=== PATIENT | male | born 1945 | race Caucasian/White ===

== ENCOUNTER 2019-07-09 16:10 | Inpatient (IN) | payer MEDICARE, BC ==
[~2019-07-09] VITALS: Ht 177.8 cm; Wt 87.3 kg
[~2019-07-09 16:10] MED LIST: LEVO750T46 PO; TAMS0.4C32 PO
[2019-07-09 16:50] VITALS: BP 150/62
[2019-07-09 17:29] LABS: BASOPHILS % (AUTO) 0.7 % (0.0-5.0); EOSINOPHILS % (AUTO) 3.5 % (0.0-8.0); HEMATOCRIT 24.5 % (42-54); LYMPHOCYTES % (AUTO) 21.3 % (21.0-51.0); MEAN CORPUSCULAR HGB CONC 30.2 g/dL (32.0-36.0); MEAN CORPUSCULAR VOLUME 82.8 fL (79-99); NEUTROPHILS % (AUTO) 63.1 % (40.0-77.0); PLATELET COUNT (AUTO) 258 K/uL (130-400); RED BLOOD CELL COUNT(AUTO) 2.96 MIL/uL (4.50-6.20); WHITE BLOOD COUNT (AUTO) 7.6 K/uL (4.8-10.8)
[2019-07-09 17:46] LABS: ALBUMIN 3.9 g/dL (3.5-5.0); BILIRUBIN,TOTAL 0.6 mg/dL (0.2-1.0); CREATININE 1.1 mg/dL (0.5-1.5); POTASSIUM 4.1 mmol/L (3.5-5.1); TOTAL PROTEIN, SERUM 7.3 g/dL (6.0-8.3)
[2019-07-09 17:51] LABS: CREATINE KINASE, TOTAL 185 U/L (21-232); MYOGLOBIN 80 ng/mL (10-92); TROPONIN I < 0.04 ng/mL (0.00-0.06)
--- NOTE | 2019-07-09 17:57 | NUR ---
SPOKE WITH DR. MCGOWAN MADE AWARE OF NEW CONSULTS, REVIEWED LABS AND PATIENTS HISTORY. NEW ORDER COLONOSCOPY TOMORROW
[2019-07-09] MEDS ORDERED: ASPI-556 PO (18:00)
[2019-07-09] MEDS ORDERED: ROSU20TA31 PO (18:00)
[2019-07-09] MEDS ORDERED: FINA5TAB41 PO (18:00)
[2019-07-09] MEDS ORDERED: LOSA25TA41 PO (18:00)
[2019-07-09] MEDS ORDERED: ISOS30TA6 PO (18:00)
[2019-07-09] MEDS ORDERED: DOCU-133 PO (18:00)
[2019-07-09] MEDS ORDERED: DONE10TA43 PO (18:00)
[2019-07-09] MEDS ORDERED: METO-408 PO (18:00)
[2019-07-09] MEDS ORDERED: TAMS-1 PO (18:00)
[2019-07-09] MEDS ORDERED: ACETAMINOPHEN 325 MG TAB PO PRN (19:30)
[2019-07-09] MEDS ORDERED: CLONIDINE HCL 0.1 MG TABLET PO PRN (19:30)
[2019-07-09] MEDS ORDERED: ZOLPIDEM TARTRATE 5 MG TAB PO PRN (19:30)
[2019-07-09] MEDS ORDERED: GUAIFENESIN-DM 200/20 MG 10 ML PO PRN (19:30)
[2019-07-09] MEDS ORDERED: ONDANSETRON HCL 4 MG/2 ML VIAL IVP PRN (19:30)
[2019-07-09] MEDS ORDERED: DIPHENHYDRAMINE HCL 25 MG CAPSULE PO PRN (19:30)
[2019-07-09] MEDS ORDERED: LACTULOSE 20 GM/30 ML UDCUP PO PRN (19:30)
[2019-07-09 19:41] VITALS: BP 136/65
[2019-07-09] MEDS ORDERED: COMPOUND IV MISC 1 EACH IVSOLN MISC PRN (19:45)
[2019-07-09] MEDS ORDERED: PEG 3350/NA SULF,BICARB,CL/KCL 4000 ML SOLN ONE (21:06)
[2019-07-09] MEDS ORDERED: SODIUM CHLORIDE 0.9% 250 ML IV ONE (21:10)
[2019-07-09] MEDS ORDERED: PEG 3350/NA SULF,BICARB,CL/KCL 4000 ML SOLN PO ONE (22:15)
[2019-07-09 23:26] VITALS: BP 148/67
[2019-07-10] VITALS (19 sets, daily range): BP systolic 118–159; BP diastolic 45–83
[2019-07-10 04:37] LABS: BASOPHILS % (AUTO) 0.7 % (0.0-5.0); EOSINOPHILS % (AUTO) 3.7 % (0.0-8.0); HEMATOCRIT 24.4 % (42-54); LYMPHOCYTES % (AUTO) 30.5 % (21.0-51.0); MEAN CORPUSCULAR HEMOGLOBIN 25.8 pg (27.0-33.0); MEAN CORPUSCULAR HGB CONC 31.6 g/dL (32.0-36.0); MEAN CORPUSCULAR VOLUME 81.9 fL (79-99); MONOCYTES % (AUTO) 11.2 % (3.0-13.0); NEUTROPHILS % (AUTO) 53.6 % (40.0-77.0); PLATELET COUNT (AUTO) 213 K/uL (130-400); RED BLOOD CELL COUNT(AUTO) 2.98 MIL/uL (4.50-6.20); RED CELL DISTRIBUTION WIDTH 12.7 % (11.0-15.5)
[2019-07-10 05:18] LABS: ALANINE AMINOTRANSFERASE 24 U/L (12-78); ALBUMIN 3.3 g/dL (3.5-5.0); ASPARTATE AMINOTRANSFERASE 19 U/L (10-37); BILIRUBIN,TOTAL 0.8 mg/dL (0.2-1.0); CARBON DIOXIDE 25 mmol/L (21-32); CHLORIDE 106 mmol/L (101-111); CREATINE KINASE, TOTAL 150 U/L (21-232); CREATININE 1.1 mg/dL (0.5-1.5); GLOMERULAR FILTR. RATE CALC 70 mL/min (>60); GLUCOSE,RANDOM 89 mg/dL (70-105); MYOGLOBIN 96 ng/mL (10-92); POTASSIUM 3.7 mmol/L (3.5-5.1); SODIUM SERUM 141 mmol/L (136-145); TOTAL PROTEIN, SERUM 6.4 g/dL (6.0-8.3); TROPONIN I < 0.04 ng/mL (0.00-0.06); UREA NITROGEN, BLOOD 17 mg/dL (7-18)
[2019-07-10] MEDS ORDERED: IRON SUCROSE COMPLEX 200 MG in SODIUM CHLORIDE 0.9% 50 ML IV SCH (09:00)
[2019-07-10] MEDS ORDERED: PANTOPRAZOLE 40 MG/VIAL IVP SCH (09:00)
[2019-07-10] MEDS ORDERED: PROPOFOL 10 MG/ML 20ML VIAL IV ONE (09:54)
[2019-07-10 11:15] LABS: HEMATOCRIT 25.3 % (42-54)
--- NOTE | 2019-07-10 11:28 | NUR ---
DCP CM met with pt discussed dc plans. Pt is independent prior to admission, lives at at home with spouse. Denies any equipments/services. Feels safe to go back home, still drives, spouse able to assist with transportation and needs as necessary. DC plan to home once stable. CM to cont to follow up. Addendum: 07/10/19 at 1130 by WILFRED MUNOZ LVN CM Amended: Links added.
[2019-07-10 11:35] LABS: CREATINE KINASE, TOTAL 152 U/L (21-232); MYOGLOBIN 121 ng/mL (10-92); TROPONIN I < 0.04 ng/mL (0.00-0.06)
== END 2019-07-10 15:55 | disposition home or self-care (01) | DRG 347 ==
LOC: EDH 16:10 → EDHIP 16:37 → 3CH 16:39
PROVIDERS: ADMIT Internal Medicine; ATTEND Internal Medicine
PROC: 30233N1 Transfusion of Nonautologous Red Blood Cells into Peripheral Vein, Percutaneous Approach (ICD-10-PCS; principal; 2019-07-10)
PROC: 06LY4CC Occlusion of Hemorrhoidal Plexus with Extraluminal Device, Percutaneous Endoscopic Approach (ICD-10-PCS; 2019-07-10)
DX: K64.1 Second degree hemorrhoids (principal); K57.31 Diverticulosis of large intestine without perforation or abscess with bleeding; D64.9 Anemia, unspecified; I10 Essential (primary) hypertension; I25.10 Atherosclerotic heart disease of native coronary artery without angina pectoris; N40.0 Benign prostatic hyperplasia without lower urinary tract symptoms; Z86.010 Personal history of colon polyps
CPT/HCPCS: 36415; 36430; 45398; 80053; 82550; 83874; 84484; 85014; 85018; 85025; 86850; 86900; 86901; 86922; A4606; C9113; G0378; J1756; J2704; J7030; J7050; P9016

== ENCOUNTER 2021-03-10 07:50 | Day surgery (SDC) | payer MEDICARE, BC ==
[2021-03-08 16:24] LABS: BASOPHILS % (AUTO) 0.7 % (0.0-5.0); EOSINOPHILS % (AUTO) 4.4 % (0.0-8.0); HEMATOCRIT 35.3 % (42-54); LYMPHOCYTES % (AUTO) 24.3 % (21.0-51.0); MEAN CORPUSCULAR HEMOGLOBIN 28.8 pg (27.0-33.0); MEAN CORPUSCULAR HGB CONC 32.6 g/dL (32.0-36.0); MEAN CORPUSCULAR VOLUME 88.5 fL (79-99); MONOCYTES % (AUTO) 9.7 % (3.0-13.0); NEUTROPHILS % (AUTO) 60.5 % (40.0-77.0); PLATELET COUNT (AUTO) 209 K/uL (130-400); RED BLOOD CELL COUNT(AUTO) 3.99 MIL/uL (4.50-6.20); RED CELL DISTRIBUTION WIDTH 13.4 % (11.0-15.5); WHITE BLOOD COUNT (AUTO) 7.5 K/uL (4.8-10.8)
[2021-03-08 16:34] LABS: APPEARANCE,URINE Clear (CLEAR); BILIRUBIN,URINE Negative (NEGATIVE); COLOR,URINE Yellow (YELLOW); GLUCOSE, URINE (UA) Negative (NEGATIVE); KETONES,URINE Negative (NEGATIVE); LEUKOCYTE ESTERASE ,URINE Negative (NEGATIVE); NITRATE,URINE Negative (NEGATIVE); OCCULT BLOOD,URINE Negative (NEGATIVE); PROTEIN,URINE Negative (NEGATIVE); UROBILINOGEN,URINE 0.2 mg/dL (0.2-1.0)
[2021-03-08 16:39] LABS: POTASSIUM 4.3 mmol/L (3.5-5.1)
[2021-03-09 11:57] VITALS: BP 139/62
[~2021-03-10] VITALS: Ht 180.3 cm; Wt 82.7 kg
[2021-03-10] VITALS (14 sets, daily range): BP systolic 105–141; BP diastolic 41–72
[2021-03-10] MEDS: CEFTRIAXONE 1G VIAL IVP SCH ×2 (05:00→11:15)
[~2021-03-10 07:50] MED LIST changes: +ASPI-556 PO; +CLOP75TA14 PO; +FINA5TAB41 PO; +GENTAMICIN 80 MG/NS 100 ML PB 100 ML IV SCH; +ISOS30TA92 PO; -LEVO750T46 PO; +LOSA25TA41 PO; +MEMA10TA55 PO; +METO-408 PO; +ROSU20TA31 PO; +TAMS-1 PO; -TAMS0.4C32 PO; +levaquin PO
[2021-03-10] MEDS ORDERED: LACTATED RINGERS 1000ML 1,000 ML IV ONE (07:58)
[2021-03-10] MEDS ORDERED: SUCCINYLCHOLINE 200MG/10ML SYR ONE (11:12)
[2021-03-10] MEDS ORDERED: LIDOCAINE PF 100MG/5ML (2%) SYRINGE 5ML ONE (11:12)
[2021-03-10] MEDS ORDERED: DEXAMETHASONE SOD PHOSPHATE 10MG/ML 1ML VIAL ONE (11:12)
[2021-03-10] MEDS ORDERED: MIDAZOLAM HCL 1 MG/ML 2ML VIAL ONE (11:13)
[2021-03-10] MEDS ORDERED: PROPOFOL 10 MG/ML 20ML VIAL IV ONE (11:13)
[2021-03-10] MEDS ORDERED: FENTANYL CITRATE PF 50 MCG/1 ML 2ML VIAL ONE (11:27)
== END 2021-03-10 13:20 | disposition home or self-care (01) ==
LOC: DAH 07:50
PROVIDERS: ATTEND Urology
DX: C61 Malignant neoplasm of prostate (principal); Z20.822 Contact with and (suspected) exposure to COVID-19; I25.10 Atherosclerotic heart disease of native coronary artery without angina pectoris; Z79.01 Long term (current) use of anticoagulants; Z98.890 Other specified postprocedural states; Z95.5 Presence of coronary angioplasty implant and graft; Z79.899 Other long term (current) drug therapy
CPT/HCPCS: 36415; 55700; 71045; 76872; 76942; 80048; 81003; 85025; 87088; 87635; 88305; 88341; 88342; 93005; A4215 ×2; A4221; A4222; A4223; A4600; A4649; A4663; A4930; A6260; C9803; J0330; J0696; J1100; J1580; J2001; J2250; J2704; J3010; J7120

== ENCOUNTER 2022-03-02 06:52 | Day surgery (SDC) | payer MEDICARE, BC ==
[2022-02-27 13:26] LABS: BASOPHILS % (AUTO) 0.5 % (0.0-5.0); EOSINOPHILS % (AUTO) 1.5 % (0.0-8.0); HEMATOCRIT 38.3 % (42-54); LYMPHOCYTES % (AUTO) 26.2 % (21.0-51.0); MEAN CORPUSCULAR HEMOGLOBIN 28.9 pg (27.0-33.0); MEAN CORPUSCULAR HGB CONC 33.2 g/dL (32.0-36.0); MONOCYTES % (AUTO) 9.7 % (3.0-13.0); NEUTROPHILS % (AUTO) 61.8 % (40.0-77.0); PLATELET COUNT (AUTO) 225 K/uL (130-400); RED CELL DISTRIBUTION WIDTH 12.9 % (11.0-15.5); WHITE BLOOD COUNT (AUTO) 7.3 K/uL (4.8-10.8)
[2022-02-27 13:34] LABS: CREATININE 1.1 mg/dL (0.5-1.5); POTASSIUM 4.5 mmol/L (3.5-5.1)
[2022-02-27 14:15] LABS: APPEARANCE,URINE CLEAR (CLEAR); BILIRUBIN,URINE NEGATIVE (NEGATIVE); COLOR,URINE YELLOW (YELLOW); GLUCOSE, URINE (UA) NEGATIVE (NEGATIVE); KETONES,URINE NEGATIVE (NEGATIVE); LEUKOCYTE ESTERASE ,URINE NEGATIVE Leu/uL (NEGATIVE); NITRATE,URINE NEGATIVE (NEGATIVE); OCCULT BLOOD,URINE NEGATIVE (NEGATIVE); PH,URINE 6.5 (5.0-8.0); PROTEIN,URINE NEGATIVE (NEGATIVE); UROBILINOGEN,URINE 0.2 mg/dL (0.2-1.0)
[2022-02-28 14:15] VITALS: BP 125/62
[2022-03-02] VITALS (14 sets, daily range): BP systolic 107–130; BP diastolic 49–81
[~2022-03-02] VITALS: Ht 180.3 cm; Wt 79.6 kg
[~2022-03-02 06:52] MED LIST changes: -ASPI-556 PO; +CEFTRIAXONE 1G VIAL IVPB SCH; -CLOP75TA14 PO; +LEVO-70 PO; -MEMA10TA55 PO; -METO-408 PO; -levaquin PO
[2022-03-02] MEDS ORDERED: LACTATED RINGERS 1000ML 1,000 ML IV ONE (07:10)
[2022-03-02] MEDS ORDERED: MIDAZOLAM HCL 1 MG/ML 2ML VIAL ONE (09:42)
[2022-03-02] MEDS ORDERED: FENTANYL CITRATE PF 50 MCG/1 ML 2ML VIAL ONE (09:43)
[2022-03-02] MEDS ORDERED: PROPOFOL 10 MG/ML 20ML VIAL IV ONE (09:43)
[2022-03-02] MEDS ORDERED: GLYCOPYRROLATE 1 MG/5 ML SYRINGE ONE (09:50)
== END 2022-03-02 11:23 | disposition home or self-care (01) ==
LOC: DAH 06:52
PROVIDERS: ATTEND Urology
DX: N40.0 Benign prostatic hyperplasia without lower urinary tract symptoms (principal); Z20.822 Contact with and (suspected) exposure to COVID-19; Z79.899 Other long term (current) drug therapy; Z79.01 Long term (current) use of anticoagulants; Z95.5 Presence of coronary angioplasty implant and graft
CPT/HCPCS: 80048; 85025; 87088; 87426; 81003; 36415; 71045; 55700; 88342; 76872; 88341; 76942; J7120; J3010; J3490; J0696; J2250; J2704; J1580; A4215 ×2; A4649; A4223; A4222; A4221; A4663; A4600; 93005